=== PATIENT | male | born 1970 | race Caucasian/White ===

== ENCOUNTER → 2017-06-08 | Outpatient (CLI) | payer BC ==
[2017-06-08] VITALS (8 sets, daily range): BP systolic 95–129; BP diastolic 63–85; PULSE 58–66
[~2017-06-08] VITALS: Ht 198.1 cm; Wt 100.5 kg
[~2017-06-08] MED LIST: ALLEGRA 60MG TA60 MG PO; AMBIEN 5MG TABLE5 MG PO; MULTI VITAMINS1 TAB PO; NORCO 325 MG-51 TAB PO
== END ==
LOC: COL.RAD 09:24
DX: M51.27 Other intervertebral disc displacement, lumbosacral region (principal); M12.88 Other specific arthropathies, not elsewhere classified, other specified site; F40.240 Claustrophobia
CPT/HCPCS: G9654; J2250; J2704

== ENCOUNTER → 2019-01-05 | Outpatient (CLI) | payer BC ==
[~2019-01-05] VITALS: Ht 198.1 cm; Wt 99.9 kg
[~2019-01-05] MED LIST changes: +ASPIRIN 81M81 MG/TA2 PO; +PROBIOTIC ACID1 EAC3 PO
[2019-01-05 13:00] VITALS: BP 114/81; PULSE 54
[2019-01-05 14:42] VITALS: BP 130/75; PULSE 63
--- NOTE | 2019-01-05 15:15 | NUR ---
pt given snack and went over dc information. pt was taken down to pov and was met by his ride
== END ==
LOC: COL.RAD 12:42
DX: M51.16 Intervertebral disc disorders with radiculopathy, lumbar region (principal); M48.061 Spinal stenosis, lumbar region without neurogenic claudication; M43.16 Spondylolisthesis, lumbar region; M12.88 Other specific arthropathies, not elsewhere classified, other specified site
CPT/HCPCS: J2250; J2704; J3010